=== PATIENT | female | born 1980 | race Caucasian/White ===

== ENCOUNTER 2024-01-12 23:31 | Inpatient (IN) | payer BC, SELFPAY ==
[2024-01-12 18:54] VITALS: BP 110/64; BMI 24.4
[2024-01-12 18:56] VITALS: BP 110/64
[2024-01-12 19:00] VITALS: BP 125/55
[2024-01-12 19:08] LABS: % Basophils 0.3 % (0-2); % Eosinophils 0.3 % (0-6); % Immature Granulocytes 0.5 % (0-0.5); % Lymphocytes 7.1 % (20.5-51.1); % Monocytes 3.5 % (1.7-9.3); % Neutrophils 88.3 % (42.2-75.2); Absolute Immature Granulocytes 0.1 10^3/uL (0-0.05); Absolute Lymphocytes 1.1 10^3/uL (1.2-3.4); Absolute Monocytes 0.5 10^3/uL (0.1-0.6); Absolute Neutrophils 13.1 10^3/uL (1.4-6.5); Hematocrit 32.6 % (37.0-47.0); Hemoglobin 11.9 g/dL (12.0-16.0); Mean Corp Hgb Conc. 36.5 g/dL (33.0-37.0); Mean Corpuscular Hgb 30.4 pg (27.0-31.0); Mean Corpuscular Volume 83.4 fL (81.0-99.0); Mean Platelet Volume 9.2 fL (7.4-10.4); Nucleated Red Blood Cells % 0 %; Platelet Count 209 10^3/uL (130-400); Red Blood Cell Count 3.91 10^6/uL (4.20-5.40); Red Cell Dist. Width 12.7 % (11.5-14.5); White Blood Cell Count 14.9 10^3/uL (4.8-10.8)
[2024-01-12 19:20] LABS: HCG, Serum Qualitative Screen Negative
[2024-01-12 19:21] LABS: ALT (SGPT) 18 U/L (0-35); AST (SGOT) 22 U/L (14-36); Alkaline Phosphatase 73 U/L (38-126); Blood Urea Nitrogen 15 mg/dl (7-17); Calcium 9.4 mg/dl (8.4-10.2); Carbon Dioxide 19 mmol/L (22-30); Chloride 102 mmol/L (98-107); Estimated Creatinine Clearance 92 ml/min; Glucose 95 mg/dl (70-99); Lipase 74 U/L (23-300); Potassium 3.6 mmol/L (3.5-5.1); Sodium 130 mmol/L (135-145); Total Bilirubin 1.2 mg/dl (0.2-1.3); Total Protein 6.6 g/dl (6.3-8.2); eGFR > 60.00
[2024-01-12 19:23] LABS: COVID-19 Antigen Negative (Negative)
[2024-01-12 19:32] LABS: Troponin I < 0.012 ng/ml
[2024-01-12 20:00] VITALS: BP 120/60
--- NOTE | 2024-01-12 20:15 | ED.GENMED ---
History of Present Illness
General
Chief Complaint: Abdominal Symptoms
Source: patient and spouse
Exam Limitations: none
Time Seen by Provider: 01/12/24 19:19
Travel History
Have you had any contact with someone who has COVID-19?: No
Do you have any symptoms of coronavirus? Fever > 100 degrees, chills, cough, shortness of breath, sore throat, loss of taste or smell, muscle aches, or headache?: Yes
Symptoms:: see triage
History of Present Illness
History of Present Illness:
Patient started with left ear pain last week. Was on a course of unknown antibiotics. She just finished them. Today developed fever general myalgias nausea vomiting chest pain that waves from her abdomen up to her chest with some shortness of
breath. Symptoms are moderate in nature.
Past History
Past History
ED Past Medical History: Other (ADD)
ED Past Surgical History: Other (Cyst removed from her back)
Social History
Living: with family
Review of Systems
Review of Systems
All Other Systems: Not applicable
Constitutional: Reports fever
Respiratory: Reports cough
Cardiac: Reports chest pain; Denies syncope
: Reports no symptoms
Phy Exam
Physical Exam
Physical Exam:
GENERAL: Alert and oriented. Appears uncomfortable but nontoxic
EYE: Orbits normal.
NECK: Supple, no significant adenopathy.
ENT: Pharynx without erythema
CARDIAC: Regular rate and rhythm without any obvious murmurs.
LUNGS: Clear breath sounds,normal
ABDOMEN: Soft, mild nonlocalizing abdominal tenderness more left lower quadrant however no rebound or guarding no mass or hernia. No CVA tenderness
NEUROLOGICAL: Alert and oriented , grossly non-focal
SKIN: Warm and dry, no rash or lesion, no discoloration, skin intact.
MUSCULOSKELETAL: No edema,no deformity.Good color
PSYCH: Normal and appropriate interaction.
Course
Orders/Labs/Results
Orders:
Orders
01/12/24 18:58
Electrocardiogram (*1) Urgent
Reason for Study: Shortness of Breath
01/12/24 18:59
EKG- Treatment ONCE
Test Result ONCE
01/12/24 19:00
COVID-19 Antigen Urgent
Source: Nasal Swab
Complete Blood Count/With Diff Urgent
Comprehensive Metabolic Panel Urgent
HCG, Serum Qualitative Screen Urgent
Lipase Urgent
Troponin I Urgent
Influenza A+B Rapid Molecular Urgent
NOEMY Source: Nasal Swab
Specimen Description:
01/12/24 19:42
CXR2 [CR Chest - 2 Views ] Urgent
Comment:
Reason For Exam: Chest pain myalgias mild cough
01/12/24 20:22
CT Pe/abd/pel W Urgent
Reason For Exam: Chest pain short of breath
0.9% Sodium Chloride 1000 ml [Nss] 1,000 ml IV BOLUS
01/12/24 20:29
Urinalysis Reflex To Culture Urgent
Date Specimen was Collected: 01/12/24
Time Specimen was Collected: 20:26
Ketorolac [Toradol] 15 mg IV NOW STA
01/12/24 22:45
Blood Culture Q30M
NOEMY Source: Blood/Venous
Specimen Description:
01/12/24 23:13
Admit/Transfer Patient As Directed
Co-Sign Provider:
Level of Care: Inpatient admission
Assign to:: Medical/Surgical
Physician / Group: Chris
Diagnosis: Colitis
Reason for Hospitalization: IVFs, stool testing
Expected length of stay greater than two midnights?: Yes
ELOS- Estimated Length of Stay in days: 3
I certify the patient meets the requirements for IP care: Yes
01/12/24 23:14
Code Status As Directed
Resuscitation Status: Full Code
01/12/24 23:15
Blood Culture Q30M
NOEMY Source: Blood/Venous
Specimen Description:
01/12/24 23:50
Lactic Acid Q4H
Comment: CANCEL 2nd LACTIC ACID IF 1st LACTIC ACID IS LESS THAN 2
Norovirus by PCR Urgent
NOEMY Source: Feces/Stool
Specimen Description:
Date Specimen was Collected: 01/12/24
Time Specimen was Collected: 23:47
Stool Culture Urgent
NOEMY Source: Feces/Stool
Specimen Description:
Date Specimen was Collected: 01/12/24
Time Specimen was Collected: 23:48
01/13/24 00:17
0.9% Sodium Chloride 1000 ml [Nss] 1,000 ml IV 125 mls/hr
Acetaminophen [Tylenol] 650 mg PO Q4HPRN PRN
Ondansetron Injectable [Zofran] 4 mg IV Q6HPRN PRN
01/13/24 00:17
Activity As Directed
Activity Level: Out of Bed-Early Mobility
With Assistance
I&O [Intake/ Output] As Directed
Frequency: q12h
Pneumatic Compression Sleeves As Directed
Type: Knee high
Vital Signs As Directed
Frequency: Per unit guidelines
DX Deep Vein Thrombosis Video Routine
01/13/24 05:25
Basic Metabolic Panel IN AM
Complete Blood Count/No Diff IN AM
01/13/24 Breakfast
Clear Liquid
At Your Request: Full Participation
Does patient need a safe tray?: No
Abnormal Lab Results
01/12/24 01/12/24
19:00 20:29
WBC 14.9 H 10^3/uL
(4.8-10.8)
RBC 3.91 L 10^6/uL
(4.20-5.40)
Hgb 11.9 L g/dL
(12.0-16.0)
Hct 32.6 L %
(37.0-47.0)
Abs Immat Gran (auto) 0.1 H 10^3/uL
(0-0.05)
Absolute Neuts (auto) 13.1 H 10^3/uL
(1.4-6.5)
Absolute Lymphs (auto) 1.1 L 10^3/uL
(1.2-3.4)
Neutrophils % 88.3 H %
(42.2-75.2)
Lymphocytes % 7.1 L %
(20.5-51.1)
Sodium 130 L mmol/L
(135-145)
Carbon Dioxide 19 L mmol/L
(22-30)
Urine Ketones 2+ A
(Negative)
01/12/24 19:00
01/12/24 19:00
Vital Signs
Initial and Last Documented VS:
Initial Vital Signs
Temp Pulse Resp BP Pulse Ox
98.0 F 85 16 110/64 100
01/12/24 18:54 01/12/24 18:54 01/12/24 18:54 01/12/24 18:54 01/12/24 18:54
Last Documented Vital Signs
Temp Pulse Resp BP Pulse Ox
98.6 F 70 16 100/64 98
01/14/24 23:20 01/14/24 23:20 01/14/24 23:20 01/14/24 23:20 01/14/24 23:20
*Radiology
Radiology exam reviewed: radiology read reviewed (Highly suggestive of colitis. No other acute findings)
*Pulse Oximetry
Patient hypoxic: no
*EKG
Interpreted by ED Provider?: Yes
Comparison EKG: no comparison EKG present
Heart Rate: 88
Rate: normal
Rhythm: sinus
[place]: normal axis
Interval: normal interval
QRS Pattern: normal QRS
Ischemia: non-specific ST changes
*Director Of Channel [employer] Interpretation
Rate: normal
Interpretation: normal
Heart Rate: 90
Rhythm: sinus
*Critical Care Note
Total Time (30-74mins, 75-104mins- exclusive of procedures): Not Applicable
Update Note
Update Note:
Patient still appears very washed out and weak. Only positive findings are colitis by CT and leukocytosis. Given her general appearance and how she feels warrants inpatient management.
ED Attending Note
-
Portions of this chart may have been created with voice recognition software.� Occasional wrong word or��sound alike� substitutions may have occurred due to the inherent limitations of voice recognition software.
Discharge Plan
Departure
Patient Disposition: Admit
Date of Disposition: 01/12/24
Time of Disposition: 22:42
Presentation/result/management discussed w/ accepting MD/DO: Hospitalist
Discharge Problem:
Possible infectious colitis, Possible severe viral syndrome
Interventions
Interventions:
*Risk Screen - Suicide Last Done: 01/13/24 17:00
*General Assessment Last Done: 01/12/24 18:54
*Neglect/Abuse Screening Last Done: 01/12/24 18:54
ED- Fall Risk Assessment Last Done: 01/12/24 19:55
*ED COVID-19 Vaccine History Last Done: 01/13/24 17:00
*Nursing Disposition Last Done: 01/13/24 13:31
PB-Xapbjp-Bembmnqdgm Assessment Last Done: 01/13/24 01:40
Discharge Date and Time
Discharge Date/Time: 01/13/24 13:32
[2024-01-12] MEDS: NSS 1000 IV (20:28)
[2024-01-12] MEDS: TORADOL 15 MG IV (20:33)
[2024-01-12 20:42] LABS: Urine Albumin Negative (Neg - Trace); Urine Bilirubin Negative (Negative); Urine Character Clear (Clear); Urine Color Yellow; Urine Glucose Negative (Negative); Urine Ketone 2+ (Negative); Urine Leukocyte Negative (Negative); Urine Nitrite Negative (Negative); Urine Occult Blood Negative (Negative); Urine Urobilinogen Negative (Neg - 1+); Urine pH 6.5 (5.0-9.0)
[2024-01-12 21:46] VITALS: BP 112/53
--- NOTE | 2024-01-12 23:17 | HPS.HSE ---
Family Physician
-
Family Physician: * NONE
Chief Complaint
-
Nausea, Abdominal Pain, Fever and Myalgia
History of Present Illness
Patient is a 43 y/o female without significant past medical history who presents with nausea, abdominal pain, fever and myalgias. Patient reports she was started on an oral antibiotic, cefdinir, about 1 week ago for an ear infection. States she
initially felt better but then yesterday started to feel unwell again. Last evening she developed fever. Overnight she experienced myalgias. This morning she had recurrent fever and developed worsening nausea. She also describes cramping
abdominal pain that radiates up into her chest. She states she has moved her bowels 4 times while in the emergency department and reports some associated urgency with these bowel movements. She denies any family members with similar symptoms. She
notes that she eliminated gluten from her diet in 2008, but was unable to be tested for celiac disease as she had not consumed any gluten and she did not want to reintroduce gluten for testing purposes. She states she did have a donut about 2 weeks
ago which did not trigger any symptoms. She denies any fluid intake, or known gluten cross-contamination over the last several days, though notes the symptoms are similar to her reaction to gluten in the past. She reports eating a salad while out a
restaurant last evening prior to onset of symptoms.
Medical History
Past Medical History
Past Medical History: Reports Other
Additional Past Medical History:
Gluten Intolerance /possible Celiac Disease
Past Surgical History: Reports None
Social History
Tobacco: Non-smoker
Alcohol: Occasional
Family History
Family History: Not pertinent
Allergies / Home Medications
Allergies reflects when Allergies were last updated in [facility].
Home Medications with original date entered in [facility]
Allergy/Medication List:
Allergies
Allergy/AdvReac Type Severity Reaction Status Date / Time
clarithromycin [From Biaxin] Allergy Hives Verified 01/12/24 19:01
oxycodone Allergy Hives Verified 01/12/24 19:01
Home Medications
cefdinir 300 mg capsule 300 mg PO BID 01/12/24
Review of Systems
-
A 12 point ROS was completed and negative except as noted: Yes
Constitutional: Reports Fever and Chills
Respiratory: Denies Cough or Trouble Breathing
Cardiac: Denies Chest Pain or Palpitations
Abdomen/GI: Reports See HPI
Physical Exam
Vital Signs
Vital Signs
Temp Pulse Resp BP Pulse Ox
98.0 F 85 19 112/53 97
01/12/24 18:54 01/12/24 21:15 01/12/24 21:15 01/12/24 21:46 01/12/24 22:30
Physical Exam
General: Comfortable and Conversant
HEENT: Anicteric and Moist mucous membranes
Respiratory: Clear and Non Labored Respirations
Cardiac: S1/S2 and Regular Rhythm
GI: Soft, Tender (Mild on the right without rebound or guarding) and Other (Hyperactive bowel sounds)
Rectal: Deferred by Provider
Musculoskeletal: No Clubbing, No Cyanosis and No Edema
Skin: Warm and Dry
Neuro: Awake, Alert, Oriented and Nonfocal/grossly intact
Psych: Calm
Laboratory Results
-
01/12/24 19:00
01/12/24 19:00
Laboratory Results
Total Bilirubin 1.2 mg/dl (0.2-1.3) 01/12/24 19:00
AST 22 U/L (14-36) 01/12/24 19:00
ALT 18 U/L (0-35) 01/12/24 19:00
Alkaline Phosphatase 73 U/L (38-126) 01/12/24 19:00
Troponin I < 0.012 ng/ml 01/12/24 19:00
Lipase 74 U/L (23-300) 01/12/24 19:00
Data Reviewed
-
Lab Data: Labs Reviewed by me
Impression/Plan
-
Colitis, suspect infectious in nature
-Check stool for C Diff and stool cultures
-Allow clear liquids
-Start empiric Oral Vancomycin and IV Zosyn pending stool studies
DVT Proph: SCDs
Code Status: Full Code
--- NOTE | 2024-01-12 23:57 | W.PN.UPDATE ---
Update Note
Progress Note Update
Patient seen and examined independently. Agree with findings and plan as set forth in the today's H&P by Beatrice Morton PA-C.
Patient is a 43y F with no significant PMH who presents to ED complaining of nausea, abdominal pain and diarrhea. Patient states that she was started on oral abx for sinus infection with cefdinir about one week ago. She had an episode of
diarrhea on Tuesday, but then normal stools after that. Last PM she developed fevers. She has crampy abdominal pain that radiates into the chest. She has had four loose bowel movements since arrival here at the ED. Patient denies any emesis.
Imaging done in the ED this evening suggests colitis.
Ass:
Colitis - Infectious versus other
Hyponatremia
Plan:
Admit for further evaluation and treatment.
Cover with abx for suspected infectious colitis.
IV Zosyn and oral Vancomycin given recent abx use / potential for possible CDiff.
IVF support.
Monitor for new / worsening symptoms.
Follow-up stool studies, culture data, etc.
[2024-01-13] VITALS (7 sets, daily range): BP systolic 96–110; BP diastolic 47–57
[2024-01-13 00:42] LABS: Lactic Acid 1.2 mmol/L (0.7-2.0)
[2024-01-13] MEDS: NSS 1000 IV ×3 (01:00→16:57)
[2024-01-13] MEDS: ZOSYN 50 IV ×2 (01:03→05:37)
[2024-01-13] MEDS: FIRVANQ 125 MG PO ×2 (01:08→05:33)
[2024-01-13] MEDS: TYLENOL 650 MG PO ×3 (01:13→16:56)
[2024-01-13 05:36] LABS: Hematocrit 30.6 % (37.0-47.0); Hemoglobin 10.7 g/dL (12.0-16.0); Mean Corpuscular Hgb 30.1 pg (27.0-31.0); Mean Platelet Volume 9.7 fL (7.4-10.4); Platelet Count 196 10^3/uL (130-400); Red Blood Cell Count 3.56 10^6/uL (4.20-5.40); White Blood Cell Count 16.1 10^3/uL (4.8-10.8)
[2024-01-13 06:04] LABS: Blood Urea Nitrogen 12 mg/dl (7-17); Calcium 8.6 mg/dl (8.4-10.2); Carbon Dioxide 22 mmol/L (22-30); Chloride 105 mmol/L (98-107); Estimated Creatinine Clearance 106 ml/min; Glucose 97 mg/dl (70-99); Potassium 3.7 mmol/L (3.5-5.1); Sodium 135 mmol/L (135-145); eGFR > 60.00
--- NOTE | 2024-01-13 08:31 | W.PN.HOSP.TC ---
Today's Communication/Plan
-
cont clears
cont IVF
follow stool cultures
if no better consider ID or GI
cont oral vanco and zosyn for now
Assessment / Plan
Assessment / Plan
pt is a 43 year old female
Colitis, suspect infectious in nature--was on abx previously for ear infection --follow stool studies--agree with oral vanco and zosyn (although can consider levo/flagyl if pt still with diarrhea)--clears
DVT Proph: SCDs
Code Status: Full Code
Anticipated Discharge: 24 - 48 hours
Subjective/Interval History
-
Date of Service: January 13, 2024
pt c/o weakness and liquid diarrhea
Objective Data
-
Labs:
Laboratory Results
01/13/24
05:25
WBC 16.1 H
Hgb 10.7 L
Hct 30.6 L
Plt Count 196
Sodium 135
Potassium 3.7
Chloride 105
Carbon Dioxide 22
BUN 12
Creatinine 0.7
Glucose 97
Calcium 8.6
Vital Signs:
max temp for 24 hours
01/12/24
23:20
Temp 98.5 F
Vital Signs
Temp Pulse Resp BP Pulse Ox
98.5 F 71 15 96/56 96
01/12/24 23:20 01/13/24 05:28 01/13/24 05:28 01/13/24 05:28 01/13/24 05:28
Review of Systems
-
All other systems: Reviewed and negative
Abdomen/GI: Reports Abdominal Pain and Diarrhea
Neuro: Reports Weakness
Physical Exam
-
General: Well Developed, Well Nourished and No Apparent Distress
HEENT: Normocephalic and Atraumatic
Respiratory: Clear to Auscultation; Negative Wheezes or Rhonchi
Cardiac: Regular Rhythm and S1/S2; Negative Murmur
GI: Soft, Nondistended, Normal Bowel Sounds and Tender (minimally)
Musculoskeletal: No Clubbing, No Cyanosis and No Edema
Neuro: Awake and Alert
Psych: Calm
--- NOTE | 2024-01-13 09:22 | PTCARENOTE ---
pt aaox3. states 5/10 sharp cramping pain in abd. having liquid stool. DR notified of pain will order additional pain med. ivf running as ordered.
[2024-01-13] MEDS: MORPHINE SULFATE 1 MG IV ×2 (10:21→15:03)
[2024-01-13] MEDS: ZOFRAN 4 MG IV (10:29)
[2024-01-13] MEDS: FIRVANQ 250 MG PO ×3 (12:04→23:55)
[2024-01-13] MEDS: TORADOL 15 MG IV (13:08)
[2024-01-14] MEDS: TORADOL 15 MG IV ×2 (00:02→19:59)
[2024-01-14] MEDS: NSS 1000 IV ×3 (02:41→17:17)
[2024-01-14] MEDS: FIRVANQ 250 MG PO ×4 (05:40→23:04)
[2024-01-14] MEDS: TYLENOL 650 MG PO (05:43)
[2024-01-14 07:20] VITALS: BP 101/55
--- NOTE | 2024-01-14 08:41 | W.PN.HOSP.TC ---
Today's Communication/Plan
-
advance diet
add probiotic
renew IVF
Assessment / Plan
Assessment / Plan
pt is a 43 year old female
C. diff Colitis--was on abx previously for ear infection-- increased oral vanco and d/c'd zosyn--adding Visbiome--advance to full liquids--renew IVF--labs pending this AM
DVT Proph: SCDs
Code Status: Full Code
Anticipated Discharge: > 48 hours
Subjective/Interval History
-
Date of Service: January 14, 2024
pt still with diarrhea--energy better, pain better
Objective Data
-
Labs:
Laboratory Results
01/14/24
07:48
WBC Pending
Hgb Pending
Hct Pending
Plt Count Pending
Sodium Pending
Potassium Pending
Chloride Pending
Carbon Dioxide Pending
BUN Pending
Creatinine Pending
Glucose Pending
Calcium Pending
Vital Signs:
max temp for 24 hours
01/13/24
16:30
Temp 101.8 F H
Vital Signs
Temp Pulse Resp BP Pulse Ox
98.5 F 54 16 101/55 97
01/14/24 07:20 01/14/24 07:20 01/14/24 07:20 01/14/24 07:20 01/14/24 07:20
I&O
01/13/24 01/14/24 01/15/24
06:59 06:59 06:59
Intake Total 1979
Balance 1979
Review of Systems
-
All other systems: Reviewed and negative
Physical Exam
-
General: Well Developed, Well Nourished and No Apparent Distress
HEENT: Normocephalic and Atraumatic
Respiratory: Clear to Auscultation; Negative Wheezes or Rhonchi
Cardiac: Regular Rhythm and S1/S2; Negative Murmur
GI: Soft, Nontender and Distended; Negative Normal Bowel Sounds (hypoactive)
Musculoskeletal: No Clubbing, No Cyanosis and No Edema
Neuro: Awake
Psych: Calm
[2024-01-14 09:19] LABS: Hematocrit 28.5 % (37.0-47.0); Hemoglobin 9.6 g/dL (12.0-16.0); Mean Corp Hgb Conc. 33.7 g/dL (33.0-37.0); Mean Corpuscular Hgb 29.8 pg (27.0-31.0); Mean Corpuscular Volume 88.5 fL (81.0-99.0); Mean Platelet Volume 10.3 fL (7.4-10.4); Platelet Count 172 10^3/uL (130-400); Red Blood Cell Count 3.22 10^6/uL (4.20-5.40); Red Cell Dist. Width 13.2 % (11.5-14.5); White Blood Cell Count 13.3 10^3/uL (4.8-10.8)
[2024-01-14 09:41] LABS: Blood Urea Nitrogen 8 mg/dl (7-17); Calcium 8.5 mg/dl (8.4-10.2); Carbon Dioxide 23 mmol/L (22-30); Chloride 106 mmol/L (98-107); Estimated Creatinine Clearance 123 ml/min; Glucose 75 mg/dl (70-99); Magnesium 1.9 mg/dl (1.6-2.3); Sodium 134 mmol/L (135-145); eGFR > 60.00
[2024-01-14] MEDS: VISBIOME 2 CAP PO (09:44)
[2024-01-14] MEDS: KCL 270 MEQ IV (11:32)
[2024-01-14] MEDS: KCL 40 MEQ PO (11:34)
[2024-01-14 15:15] VITALS: BP 107/65
--- NOTE | 2024-01-14 15:34 | CM ---
MEt with patient admitted from home with colitis. She lives with spouse, son, dgtr and mother in law in [place] [facility].
She is independent in home and community.
She does not use or have any DME. No history of VNA or SNF.
PCP: sees Sonia FUENTES
PHarmacy: [facility]
PLAN: home no needs.
[2024-01-14 23:20] VITALS: BP 100/64
[2024-01-15 00:28] VITALS: BP 100/64
[2024-01-15] MEDS: NSS 1000 IV ×2 (00:37→08:38)
[2024-01-15] MEDS: TORADOL 15 MG IV ×3 (03:09→21:25)
[2024-01-15] MEDS: MYLICON 80 MG PO ×2 (03:19→14:33)
[2024-01-15] MEDS: FIRVANQ 250 MG PO ×4 (06:19→22:57)
[2024-01-15 07:15] VITALS: BP 121/67
[2024-01-15] MEDS: ZOFRAN 4 MG IV (08:38)
[2024-01-15] MEDS: VISBIOME 2 CAP PO (08:38)
[2024-01-15] MEDS: FLUSH (NSS) 2 FLUSH IV ×2 (08:39→10:00)
[2024-01-15 08:51] LABS: Hemoglobin 10.2 g/dL (12.0-16.0); Mean Corpuscular Hgb 29.6 pg (27.0-31.0); Mean Platelet Volume 10.2 fL (7.4-10.4); Red Blood Cell Count 3.45 10^6/uL (4.20-5.40); Red Cell Dist. Width 13.4 % (11.5-14.5); White Blood Cell Count 7.7 10^3/uL (4.8-10.8)
[2024-01-15 08:53] LABS: Platelet Count 228 10^3/uL (130-400)
[2024-01-15 09:20] LABS: Blood Urea Nitrogen 9 mg/dl (7-17); Carbon Dioxide 21 mmol/L (22-30); Chloride 108 mmol/L (98-107); Estimated Creatinine Clearance 123 ml/min; Glucose 83 mg/dl (70-99); Magnesium 1.9 mg/dl (1.6-2.3); Potassium 3.7 mmol/L (3.5-5.1); Sodium 136 mmol/L (135-145); eGFR > 60.00
--- NOTE | 2024-01-15 10:12 | W.PN.HOSP.TC ---
Today's Communication/Plan
-
stop IVF
OBS series
Assessment / Plan
Assessment / Plan
pt is a 43 year old female
C. diff Colitis--was on abx previously for ear infection-- increased oral vanco and d/c'd zosyn--added Visbiome--will check OBS series as pt feels bloated--perhaps ileus?
DVT Proph: SCDs
Code Status: Full Code
Anticipated Discharge: 24 - 48 hours
Subjective/Interval History
-
Date of Service: January 15, 2024
pt c/o bloating/ upper abdominal pain
Objective Data
-
Labs:
Laboratory Results
01/15/24
07:57
WBC 7.7
Hgb 10.2 L
Hct 30.0 L
Plt Count 228 D
Sodium 136
Potassium 3.7
Chloride 108 H
Carbon Dioxide 21 L
BUN 9
Creatinine 0.6
Glucose 83
Calcium 9.0
Vital Signs:
max temp for 24 hours
01/14/24
23:20
Temp 98.6 F
Vital Signs
Temp Pulse Resp BP Pulse Ox
98.1 F 37 16 121/67 100
01/15/24 07:15 01/15/24 07:15 01/15/24 07:15 01/15/24 07:15 01/15/24 07:15
I&O
01/14/24 01/15/24 01/16/24
06:59 06:59 06:59
Intake Total 1979 2830 / 2830
Balance 1979 283 / 283
Review of Systems
-
All other systems: Reviewed and negative
Abdomen/GI: Reports Abdominal Pain and Bloated; Denies Diarrhea (improved)
Physical Exam
-
General: Well Developed, Well Nourished and No Apparent Distress
HEENT: Normocephalic and Atraumatic
Respiratory: Clear to Auscultation; Negative Wheezes or Rhonchi
Cardiac: Regular Rhythm and S1/S2; Negative Murmur
GI: Soft, Normal Bowel Sounds, Tender (minimally tender) and Distended
Musculoskeletal: No Clubbing, No Cyanosis and No Edema
Neuro: Awake
[2024-01-15 15:15] VITALS: BP 124/99
[2024-01-15 23:05] VITALS: BP 117/62
[2024-01-16] MEDS: FIRVANQ 250 MG PO (05:06)
--- NOTE | 2024-01-16 05:59 | W.PN.UPDATE ---
Update Note
Progress Note Update
Patient with complaint of chest pain, and describes it as different than it has been and in different location.
Plan:
- STAT EKG
- STAT Troponin
--- NOTE | 2024-01-16 06:05 | PTCARENOTE ---
Patient c/o 'tightness' to left thigh to knee; palpable kwcurki-wlgzjwpuk-aljrom pedal pulses. Negative swelling/ warmth/ redness. Pt states she has minor pain to left tricep area. Pt has been having ongoing pain to upper abd and epigastric area
that initially sent her to ED. 01/11 EKG NSR, nonspecific ST abnormality. Trops negative.
EKG: Sinus Bradycardia. HR 42
VSS: Afebrile, HR 42, RR 18, BP 141/75, pox 97# room air.
House STAFFING ADMINISTRATOR made aware. Trops ordered.
[2024-01-16 06:19] LABS: Hematocrit 29.3 % (37.0-47.0); Mean Corp Hgb Conc. 34.1 g/dL (33.0-37.0); Mean Corpuscular Hgb 29.9 pg (27.0-31.0); Mean Corpuscular Volume 87.5 fL (81.0-99.0); Mean Platelet Volume 10.3 fL (7.4-10.4); Platelet Count 234 10^3/uL (130-400); Red Blood Cell Count 3.35 10^6/uL (4.20-5.40); Red Cell Dist. Width 13.3 % (11.5-14.5); White Blood Cell Count 5.1 10^3/uL (4.8-10.8)
[2024-01-16 06:38] LABS: Troponin I < 0.012 ng/ml
[2024-01-16 06:45] LABS: Blood Urea Nitrogen 11 mg/dl (7-17); Calcium 8.9 mg/dl (8.4-10.2); Carbon Dioxide 22 mmol/L (22-30); Chloride 111 mmol/L (98-107); Estimated Creatinine Clearance 123 ml/min; Glucose 86 mg/dl (70-99); Magnesium 1.8 mg/dl (1.6-2.3); Sodium 136 mmol/L (135-145); eGFR > 60.00
[2024-01-16 08:11] VITALS: BP 121/69
[2024-01-16] MEDS: VISBIOME 2 CAP PO (08:13)
--- NOTE | 2024-01-16 10:35 | W.PN.HOSP.TC ---
Addendum entered and electronically signed by Avis Mccann MD 01/16/24 11:20:
hypokalemia from GI losses--replete
Original Note:
Today's Communication/Plan
-
d/c
Assessment / Plan
Assessment / Plan
pt is a 43 year old female
C. diff Colitis--was on abx previously for ear infection-- increased oral vanco and d/c'd zosyn--added Visbiome--OBS series negative
DVT Proph: SCDs
Code Status: Full Code
Anticipated Discharge: Today
Subjective/Interval History
-
Date of Service: January 16, 2024
pt feeling well
tolerated solid food
Objective Data
-
Labs:
Laboratory Results
01/16/24
05:16
WBC 5.1
Hgb 10.0 L
Hct 29.3 L
Plt Count 234
Sodium 136
Potassium 4.0
Chloride 111 H
Carbon Dioxide 22
BUN 11
Creatinine 0.6
Glucose 86
Calcium 8.9
Vital Signs:
max temp for 24 hours
01/16/24
08:11
Temp 98 F
Vital Signs
Temp Pulse Resp BP Pulse Ox
98 F 49 15 121/69 100
01/16/24 08:11 01/16/24 08:11 01/16/24 08:11 01/16/24 08:11 01/16/24 08:11
I&O
01/15/24 01/16/24 01/17/24
06:59 06:59 06:59
Intake Total 2830 / 2830 1470 / 1470
Balance 2830 / 2830 1470 / 1470
Review of Systems
-
All other systems: Reviewed and negative
Physical Exam
-
General: Well Developed, Well Nourished and No Apparent Distress
HEENT: Normocephalic and Atraumatic
Respiratory: Clear to Auscultation; Negative Wheezes or Rhonchi
Cardiac: Regular Rhythm and S1/S2; Negative Murmur
GI: Soft, Nontender, Nondistended and Normal Bowel Sounds
Musculoskeletal: No Clubbing, No Cyanosis and No Edema
Neuro: Awake
Psych: Calm
--- NOTE | 2024-01-16 10:37 | CM ---
Patient seen at bedside with physician. Patient expressed eagerness to go home. Patient family to transport and no needs at this time. Patient encouraged to see PCP after discharge. CM will continue to follow for discharge planning needs.
Plan; home with no needs at this time
--- NOTE | 2024-01-16 11:13 | PN.CDI ---
CDI
- -
CDI:
Physician Documentation Request
Admit Date: 01/12/24 23:31
Dear Doctor Siobhan,
Please review the following and provide your response in the progress notes.
Clinical Indicators:
Laboratory Tests
01/12/24 01/13/24 01/14/24
19:00 05:25 07:48
Potassium 3.6 3.7 3.0 L
01/15/24 01/16/24
07:57 05:16
Potassium 3.7 4.0
Medications
Potassium Chloride (Potassium Chloride 20 Meq Extended Release Tablet) 40 meq PO NOW STA
Stop: 01/14/24 10:20
Last Admin: 01/14/24 11:34 Dose: 40 meq
Potassium Chloride 40 meq/ (Sodium Chloride) 270 mls @ 67.5 mls/hr IV NOW STA
Stop: 01/14/24 14:18
Last Admin: 01/14/24 11:32 Dose: 270 mls
Based on the above, please clarify in the progress notes, the appropriate diagnosis, if significant, that supports the above abnormalities and additional evaluation, monitoring and/or treatment rendered:
Hypokalemia
Abnormal lab value, clinically insignificant
Other
Use of terms such as suspected, likely, concern for, or probable (associated with a specific diagnosis that is being evaluated, monitored, or treated as if it exists) are acceptable and can be coded in the inpatient setting, when documented at the
time of discharge.
Thank you,
Avis Hayes RN BSN CCDS
CDI Specialist
please contact via tiger text
Please use your independent medical judgment in providing your response.
--- NOTE | 2024-01-16 11:19 | PN.CDI ---
Addendum entered and electronically signed by Avis Mccann MD 01/16/24 11:46:
documentation complete
Original Note:
CDI
- -
CDI:
Physician Documentation Request
Admit Date: 01/12/24 23:31
Dear Doctor Siobhan,
Please review the following and provide your response in the progress notes.
Clinical Indicators:
PN, 01/15
C. diff Colitis--was on abx previously for ear infection--
#...increased oral vanco and d/c'd zosyn--added Visbiome
Laboratory Tests
01/12/24 01/13/24 01/14/24
19:00 05:25 07:48
WBC 14.9 H 16.1 H 13.3 H
01/15/24 01/16/24
07:57 05:16
WBC 7.7 5.1
Selected Entries
01/13/24
13:55 01/13/24
16:30 01/13/24
21:19
Temp 100.4 F H 101.8 F H 99.4 F
Pulse 96 95
Please clarify which of the following most accurately describes the status of the patient's infection:
Sepsis, POA
Sepsis, likely, suspected, probable diagnosis
Sepsis evolved during admission
Localized Infection Only, Without Systemic Illness
- C. Diff colitis
Other
Sepsis
- Systemic manifestations of infection, with 2 or more SIRS criteria which include:
- Fever >100.4 degrees F or hypothermia < 96.8 degrees F
- Leukocytosis - WBC > 12,000 or leukopenia - WBC < 4,000 or > 10% bands
- Tachycardia > 90 beats per minute
- Tachypnea - RR > 20 breaths per minute or PaCO2 , 32mmHg
Source: Merck Manual 2013
- Indicate the known or suspected underlying infection, such as UTI, pneumonia or cellulitis
Use of terms such as suspected, likely, concern for, or probable (associated with a specific diagnosis that is being evaluated, monitored, or treated as if it exists) are acceptable and can be coded in the inpatient setting, when documented at the
time of discharge.
Thank you,
Avis Hayes RN BSN CCDS
CDI Specialist
please contact via tiger text
Please use your independent medical judgment in providing your response.
[2024-01-16 11:26] VITALS: BP 107/63
--- NOTE | 2024-01-16 15:49 | W.DCSUMMARY ---
Discharge Summary
Discharge Data
Date of Admission: 01/12/24
Date of Discharge: 01/16/24
-
Pending Results: No
Hospital Course
Primary care physician : Sonia Mendosa
Principal Discharge diagnosis : C. difficile colitis
Chronic Discharge diagnosis : None
Hospital Course : Patient is a 43-year-old female who presented with nausea, abdominal pain, fever, and myalgias. She was started on oral antibiotics 1 week prior to admission for ear infection. On the evening prior to admission she developed
fever. She also described abdominal cramping and pain radiating up to her chest. She had moved her bowels 4 times a day in the emergency department. Family members did not have any similar symptoms. Patient was found to have colitis by CAT scan
and was admitted.
Problem #1: C. difficile colitis. Patient's stool cultures revealed toxigenic C. difficile. Patient was initially started on IV Zosyn but rest of her cultures were negative. She was taken off IV Zosyn and continued on oral vancomycin. Patient
complained of bloating and obstruction series was done which was nondiagnostic. Patient is markedly better today, less pain, and is feeling ready for discharge. She is tolerating solid food. She was found to be hypokalemic from GI losses. This
was repleted as necessary. Patient is tolerating a diet and is feeling better. Diarrhea has all but gone.
Patient is stable for discharge home at this time. If there are any questions regarding this dictation or her hospital stay, please not hesitate to call. Our office number is [phone].
Important imaging findings :
ABDOMINAL/PELVIC CT SCAN IMPRESSION: Examination is negative for pulmonary embolism.
Moderate wall thickening and enhancement involving the right colon, and probably also involving the right to mid transverse colon. Findings are highly suggestive of colitis. Infectious colitis would be the leading consideration. With the history of
recent antibiotic usage, antibiotic associated C. difficile colitis should also be considered.
Moderate amount of stool present within the colon extending from the left side of the transverse colon to the rectum, suggestive of constipation. No findings to suggest stercoral colitis.
No evidence of free intraperitoneal air. No significant free pelvic fluid.
Discharge Plan
-
Patient Disposition: Home (Routine Discharge)
Discharge Diagnosis/Procedures: C. difficile colitis
Condition: Good
Diet: As tolerated
Additional Diets: no roughage for a couple days, advance as able
Activity: As tolerated
Driving Restrictions: As prior to admission
Bathing Restrictions: None
Referrals:
Sonia Mendosa CRNP [Non-Admitting Privileges] - in less than 1 week
Additional Discharge Medication Instructions: can use your probiotic of choice
Prescriptions:
New
acetaminophen 325 mg Tablet
650 mg PO Q4HPRN PRN (Reason: mild pain/ fever>100.5F) Qty: 0 0RF
simethicone 80 mg Tablet,Chewable
80 mg PO QIDPRN PRN (Reason: gas) Qty: 0 0RF
vancomycin 250 mg capsule
250 mg PO QID Qty: 40 0RF
Discontinued
cefdinir 300 mg capsule
300 mg PO BID
Rx Instructions:
FILLED 01/07/24 #14 X7 DAYS SUPPLY
Discharge Orders:
Discharge Patient (As Directed); Ordered 01/16/24
Ordered By: Avis Mccann
Discharge Date and Time
Discharge Date/Time: 01/16/24 12:46
Print Language: [place]
== END 2024-01-16 12:46 | disposition home or self-care (01) | DRG 372 ==
LOC: 2 NORTH 23:31
PROVIDERS: Nurse Practitioner Family; Physician Assistant Medical; ADMITTING PHYSICIAN Hospitalist; ATTENDING PHYSICIAN Internal Medicine; EMERGENCY PHYSICIAN Emergency Medicine
DX: A04.72 Enterocolitis due to Clostridium difficile, not specified as recurrent (principal); K90.41 Non-celiac gluten sensitivity; E87.6 Hypokalemia; Z88.1 Allergy status to other antibiotic agents; Z88.5 Allergy status to narcotic agent; Z11.52 Encounter for screening for COVID-19
CPT/HCPCS: 71046; 71275; 74022; 74177; 80048; 80053; 81003; 83605; 83690; 83735; 84484; 84703; 85025; 85027; 87040; 87045; 87046; 87324; 87427; 87449; 87502; 87798; 87811; 93005; 96361; 96374; 99285; Q9967